=== PATIENT | male | born 1995 | race Caucasian/White ===

== ENCOUNTER 2023-04-04 20:19 | Emergency (ER) | payer SELFPAY ==
[~2023-04-04] VITALS: Ht 175.3 cm; Wt 77.1 kg
[2023-04-04 20:22] VITALS: BP_SYST 118; PULSE 68; RESP 20; TEMP 97.1; O2SAT 97
[2023-04-04] MEDS ORDERED: NACL 0.9% 1,000 ML IV ONE ×2 (20:30)
[2023-04-04] MEDS ORDERED: ONDANSETRON HCL 4 MG/2 ML VIAL IVP ONE (20:30)
[2023-04-04] MEDS ORDERED: PANTOPRAZOLE SODIUM 40 MG/VIAL (PROTONIX) IVP ONE (20:30)
[2023-04-04 21:29] LABS: BASOPHILS # (AUTO) 0.1 K/uL (0.0-0.2); BASOPHILS % (AUTO) 0.6 % (0.0-2.0); EOSINOPHILS % (AUTO) 0.3 % (0.0-4.0); HEMATOCRIT 44.4 % (36-54); HEMOGLOBIN 14.4 g/dL (14.0-18.0); LYMPHOCYTES # (AUTO) 2.1 K/uL (1.0-5.5); LYMPHOCYTES % (AUTO) 17.8 % (20.5-51.5); MEAN CORPUSCULAR HEMOGLOBIN 30 pg (27-31); MEAN CORPUSCULAR HGB CONC 33 % (32-36); MEAN CORPUSCULAR VOLUME 93 fL (79.0-98.0); MONOCYTES # (AUTO) 0.8 K/uL (0.0-1.0); MONOCYTES % (AUTO) 6.5 % (1.7-9.3); NEUTROPHILS # (AUTO) 8.9 K/uL (1.8-7.7); NEUTROPHILS % (AUTO) 74.8 % (40.0-70.0); PLATELET COUNT (AUTO) 330 K/uL (130-430); RED BLOOD CELL COUNT(AUTO) 4.76 MIL/uL (4.2-6.2); RED CELL DISTRIBUTION WIDTH 13.3 % (9.0-15.0); WHITE BLOOD COUNT (AUTO) 11.9 K/uL (4.8-10.8)
[2023-04-04 21:43] LABS: CALCIUM 8.6 mg/dL (8.4-11.0); CREATININE 0.91 mg/dL (0.55-1.30)
[2023-04-04 21:47] LABS: ALBUMIN 4.1 g/dL (3.4-4.8); TOTAL BILIRUBIN 0.4 mg/dL (0.0-1.0); TOTAL PROTEIN, SERUM 7.4 g/dL (6.4-8.3)
[2023-04-04] MEDS ORDERED: POTASSIUM CHLORIDE 10 MEQ in NACL 0.9% 1,000 ML IV SCH (22:30)
[2023-04-05] MEDS ORDERED: KCL 10 mEq in 50 mL (PREMIX) 50 ML IV ONE (00:12)
[2023-04-05 00:33] VITALS: BP_SYST 124; PULSE 84; RESP 18; TEMP 98.3; O2SAT 98
[2023-04-05 02:38] LABS: BILIRUBIN,URINE NEGATIVE (NEGATIVE); BLOOD, URINE NEGATIVE (NEGATIVE); CLARITY/URINE CLEAR (CLEAR); COLOR,URINE YELLOW (YELLOW); GLUCOSE,URINE NEGATIVE (NEGATIVE); KETONES,URINE 1+ (NEGATIVE); LEUKOCYTE ESTERASE ,URINE NEGATIVE (NEGATIVE); NITRITE, URINE NEGATIVE (NEGATIVE); PROTEIN URINE NEGATIVE (NEGATIVE); UROBILINOGEN,URINE 0.2 (0.2-1.0)
== END 2023-04-05 02:10 | disposition home or self-care (01) ==
LOC: SED 20:19
DX: F10.129 Alcohol abuse with intoxication, unspecified (principal); R11.10 Vomiting, unspecified; E87.6 Hypokalemia; Z79.899 Other long term (current) drug therapy; Y90.6 Blood alcohol level of 120-199 mg/100 ml
CPT/HCPCS: 99284; 71045; 96375; 96361; 80053; 83690; 85025; 36415; 81003; 96365; 81001; G0482; J2405; C9113; J3480 ×2; J7030